=== PATIENT | female | born 1985 | race Caucasian/White ===

== ENCOUNTER 2016-11-15 17:03 | Emergency (ER) | payer MEDICAID ==
[2016-11-15] MEDS ORDERED: DEXAMETHASONE 10 MG/ML VIAL PO STA (17:21)
[2016-11-15] MEDS ORDERED: CYCLOBENZAPRINE 10 MG TABLET PO STA (17:21)
[2016-11-15] MEDS ORDERED: LIDOCAINE PATCH 5% TOP STA (17:21)
[2016-11-15] MEDS ORDERED: LIDOCAINE PATCH 5% TOP ONE (17:23)
[2016-11-15] MEDS ORDERED: CYCLOBENZAPRINE 10 MG TABLET PO ONE (17:23)
[2016-11-15] MEDS ORDERED: DEXAMETHASONE 10 MG/ML VIAL ONE (17:23)
== END 2016-11-15 18:10 | disposition home or self-care (01) ==
DX: M54.41 Lumbago with sciatica, right side (principal); F17.200 Nicotine dependence, unspecified, uncomplicated
CPT/HCPCS: 99283; A9270

== ENCOUNTER 2017-01-06 22:29 | Emergency (ER) | payer MEDICAID ==
[2017-01-06 23:11] LABS: BILIRUBIN,URINE NEGATIVE (NEGATIVE)
[2017-01-06 23:13] LABS: UA w/ MICROSCOPIC CHARGE YES
[2017-01-06 23:19] LABS: UR CULTURE IF IND NOT INDICATED; WBC,URINE 0-3 /HPF (0-5)
[2017-01-06 23:34] LABS: HCG UR QUAL NEGATIVE
[2017-01-06] MEDS ORDERED: KETOROLAC 60 MG/2 ML VIAL IM STA (23:43)
[2017-01-06] MEDS ORDERED: DEXAMETHASONE 10 MG/ML VIAL ONE (23:44)
[2017-01-06] MEDS ORDERED: KETOROLAC 60 MG/2 ML VIAL ONE (23:44)
[2017-01-06] MEDS ORDERED: CHERRY SYRUP 10 ML UDC PO ONE (23:44)
[2017-01-06] MEDS ORDERED: DEXAMETHASONE 10 MG/ML VIAL PO STA (23:44)
--- NOTE | 2017-01-07 00:27 | XRAY Preliminary Report ---
Exam: XR Hip w/Pelvis 1V RT IMPRESSION: No evidence of fracture or dislocation. [facility] SITE ID: [id number]
--- NOTE | 2017-01-07 00:29 | XRAY Report ---
EXAM: RIGHT HIP AND PELVIS RADIOGRAPHY EXAM DATE: 01/07/2017 12:17 AM. HISTORY: Right sided hip pain, and parasthesia. COMPARISONS: None. TECHNIQUE: 2 views. FINDINGS: Bones: No fracture or focal bony lesion. Joints: No evidence of dislocation. Soft Tissues: No unexpected soft tissue findings. IMPRESSION: No evidence of fracture or dislocation. [facility] Referring Provider Line: [phone] SITE ID: [id number]
--- NOTE | 2017-01-07 00:37 | ED Physician Documentation ---
PD HPI LOWER EXT INJURY - Stated complaint Stated Complaint: R LEG NUMBNESS - Chief complaint Chief Complaint: Ext Problem - History obtained from History obtained from: Patient - History of Present Illness PD HPI LOW EXT INJURY LOCATION: Right, Hip, Thigh Type of injury: Other (standing) Where injury occurred: Home Timing - onset: Today Timing - details: Abrupt onset Improved by: Immobilization Worsened by: Moving, Palpating Associated symptoms: Numbness. No: Weakness, Tingling, Swelling, Discolored Contributing factors: No: Anticoagulated, Prior ortho surgery, Prosthetic joint , Work related Similar symptoms before: Has not had sx before Recently seen: Not recently seen - Additional information Additional information: Patient is a 31 year old female with no significant past medical history who is presenting to the emergency department for right hip and with numbness down the right side of her leg reaching her big toe. Patient states that yesterday she was sitting down, when she stood up she felt a pop in her hip and now has numbness down her right leg. patient denies any other trauma at this time. Review of Systems Constitutional: denies: Fever, Chills Eyes: denies: Loss of vision, Decreased vision Ears: denies: Ear pain, Drainage/discharge Nose: denies: Rhinorrhea / runny nose, Congestion Throat: denies: Oral lesions / sores, Sore throat Cardiac: denies: Chest pain / pressure GI: denies: Abdominal Pain, Nausea, Vomiting : denies: Dysuria, Frequency Musculoskeletal: reports: Extremity pain, Joint pain. denies: Extremity swelling, Joint swelling Neurologic: reports: Numbness Immunocompromised: denies: Immunocompromised PD PAST MEDICAL HISTORY - Past Medical History Cardiovascular: Murmur - Past Surgical History Past Surgical History: Yes - Present Medications Home Medications: Ambulatory Orders Medication Instructions Recorded Confirmed No Known Home Medications [No 01/06/17 01/06/17 Known Home Medications] - Allergies Allergies/Adverse Reactions: Allergies Allergy/AdvReac Type Severity Reaction Status Date / Time No Known Drug Allergies Allergy Verified 01/06/17 22:36 - Social History Does the pt smoke?: Yes Smoking Status: Current every day smoker Does the pt drink ETOH?: Yes Does the pt have substance abuse?: No - Immunizations Immunizations are current?: Yes PD ED PE NORMAL - Vitals Vital signs reviewed: Yes - General General: Alert and oriented X 3, No acute distress, Well developed/nourished - HEENT HEENT: Atraumatic, PERRL - Neck Neck: Supple, no meningeal sign - Cardiac Cardiac: RRR, No murmur - Respiratory Respiratory: No respiratory distress, Clear bilaterally - Abdomen Abdomen: Soft, Non tender, Non distended - Derm Derm: Normal color, Warm and dry, No rash - Extremities Extremities: No deformity - Neuro Neuro: Alert and oriented X 3, No motor deficit, No sensory deficit, Normal speech - Psych Psych: Normal mood, Normal affect PD ED PE EXPANDED - Extremities Extremities: Right hip (mild tenderness to palpation, but full rom ) Results - Vitals Vitals: Vital Signs - 24 hr 01/06/17 22:33 Temperature 36.3 C L Heart Rate 80 Respiratory 16 Rate Blood Pressure 134/94 H O2 Saturation 96 Oxygen O2 Source Room air - Labs Labs: Laboratory Tests 01/06/17 01/06/17 23:00 23:00 Urine Color YELLOW Urine Clarity CLEAR Urine pH 6.0 Ur Specific [place] 1.025 1.025 Urine Protein NEGATIVE Urine Glucose (UA) NEGATIVE Urine Ketones NEGATIVE Urine Occult Blood MODERATE H Urine Nitrite NEGATIVE Urine Bilirubin NEGATIVE Urine Urobilinogen 0.2 (NORMAL) Ur Leukocyte Esterase NEGATIVE Urine RBC 0-5 Urine WBC 0-3 Ur Squamous Epith Cells RARE Squamous Urine Bacteria None Seen Ur Microscopic Review INDICATED Urine Culture Comments NOT INDICATED Urine HCG, Qual NEGATIVE - Rads (name of study) right hip Radiology: Final report received (no acute fracture or dislocation) PD MEDICAL DECISION MAKING - ED course Complexity details: reviewed old records, reviewed results, re-evaluated patient , considered differential, d/w patient ED course: Patient was seen and examined at bedside. urine was collected and checked. Patient was treated with toradol and decadron. patient was sent for imaging. when patient returned the results were reviewed. there was no acute fracture or dislocation. Patient required no further work up at this time and patient was stable for discharge with outpatient follow up. Departure - Departure Disposition: 01 Home, Self Care Clinical Impression: Sprain of right hip Condition: Good Instructions: ED Sprain Hip, Exercises Back Hip Rotator Stretch Follow-Up: primary,care provider [Other] - As Needed Comments: Your diagnostics today were within normal limits. there was no acute fracture or dislocation. YOu should continue to take motrin or tylenol as needed for pain and partake in hip stretching and exercises. You should follow up with your pmd if your symptoms persist. You may return to the emergency department at any time for new, worsening or uncontrollable symptoms.
[2017-01-07 00:38] VITALS: BP 129/78
== END 2017-01-07 00:52 | disposition home or self-care (01) ==
LOC: ED 22:29
DX: S73.101A Unspecified sprain of right hip, initial encounter (principal); X58.XXXA Exposure to other specified factors, initial encounter; F17.200 Nicotine dependence, unspecified, uncomplicated
CPT/HCPCS: 73501; 81001; 81025; 96372; 99283; 99284; A9270; 81003; 87086